=== PATIENT | male | born 1980 | race Two or more races ===

== ENCOUNTER → 2020-01-13 | Outpatient (CLI) | payer MEDICARE ==
[2020-01-13 12:09] LABS: Basophils # (auto) 0 10 ^3/uL (0-0.2); Basophils % (auto) 0.5 % (0.0-2.0); Eosinophils # (auto) 0 10 ^3/uL (0-0.8); Eosinophils % (auto) 0.5 % (0.0-7.0); Hematocrit 49.2 % (41.0-53.0); Hemoglobin 16.3 g/dL (13.5-17.5); Lymphocytes # (auto) 1.8 10 ^3/uL (0.4-5.4); Lymphocytes % (auto) 19.6 % (10.0-50.0); Mean Corpuscular Hemoglobin 30.3 pg (28.0-32.0); Mean Corpuscular Volume 91.5 fL (80.0-100.0); Monocytes # (auto) 0.7 10 ^3/uL (0-1.3); Monocytes % (auto) 7.6 % (0.0-12.0); Neutrophils # (auto) 6.7 10 ^3/uL (1.6-8.6); Neutrophils % (auto) 71.8 % (37.0-80.0); Nucleated Red Blood Cells % 0.1 %; Platelet Count (auto) 325 10^3/uL (140-450); Red Blood Cells 5.37 10^6/uL (4.5-5.90); Red Cell Distribution Width 13.8 % (11.8-14.3); White Blood Cell 9.4 10^3/uL (4.4-10.8)
[2020-01-13 12:12] LABS: Urine Bacteria NONE SEEN /hpf (None Seen); Urine Blood TRACE /uL (Negative); Urine Hyaline Cast FEW /lpf (0 - 2); Urine Specific Gravity 1.016 (1.001-1.035); Urine WBC 1 /hpf (0 - 3)
[2020-01-13 12:34] LABS: Protein, Urine 463.4 mg/dL (0.0-11.9)
[2020-01-13 12:45] LABS: Chloride 99 mmol/L (98-107); Sodium 130 mmol/L (136-145)
[2020-01-13 12:58] LABS: Alanine Aminotransferase 22 U/L (16-61); Albumin 3.1 g/dL (3.4-5.0); Alkaline Phosphatase 84 U/L (45-117); Anion Gap 4 (5-15); Aspartate Aminotransferase 19 U/L (15-37); BUN/Creatinine Ratio 15.4; Bilirubin, Total 0.6 mg/dL (0.2-1.0); Blood Urea Nitrogen 24 mg/dL (7-18); Calcium 9.4 mg/dL (8.5-10.1); Carbon Dioxide 27 mmol/L (21-32); Cholesterol 231 mg/dL (< 200); GFR African American 64 mL/min; GFR Non-African American 53 mL/min; Glucose 323 mg/dL (74-106); HDL Cholesterol 36 mg/dL (40-59); Total Protein 7.9 g/dL (6.4-8.2); Triglycerides 528 mg/dL (< 150)
== END | disposition home or self-care (01) ==
LOC: LAB 11:32
PROVIDERS: ATTEND Internal Medicine Nephrology
DX: I11.0 Hypertensive heart disease with heart failure (principal); E11.9 Type 2 diabetes mellitus without complications; I50.9 Heart failure, unspecified; I63.9 Cerebral infarction, unspecified
CPT/HCPCS: 36415; 80053; 80061; 81001; 82043; 82570; 83036; 84156; 84439; 84443; 85025

== ENCOUNTER 2020-04-30 17:53 | Inpatient (IN) | payer MEDICARE ==
[~2020-04-30] VITALS: Ht 182.9 cm; Wt 134.0 kg
[2020-04-30] MEDS ORDERED: NITROGLYCERIN 0.4 MG SL TAB SL ONE (18:45)
[2020-04-30 18:46] LABS: Basophils # (auto) 0.1 10 ^3/uL (0-0.2); Eosinophils # (auto) 0.1 10 ^3/uL (0-0.8); Eosinophils % (auto) 0.7 % (0.0-7.0); Hematocrit 39.2 % (41.0-53.0); Hemoglobin 13.2 g/dL (13.5-17.5); Lymphocytes # (auto) 2.3 10 ^3/uL (0.4-5.4); Lymphocytes % (auto) 24.4 % (10.0-50.0); Mean Corpuscular Hemoglobin 31.8 pg (28.0-32.0); Mean Corpuscular Hgb Conc. 33.7 g/dL (32.0-36.0); Mean Corpuscular Volume 94.5 fL (80.0-100.0); Monocytes # (auto) 0.8 10 ^3/uL (0-1.3); Monocytes % (auto) 8.4 % (0.0-12.0); Neutrophils # (auto) 6.3 10 ^3/uL (1.6-8.6); Neutrophils % (auto) 65.5 % (37.0-80.0); Nucleated Red Blood Cells % 0.2 %; Red Blood Cells 4.15 10^6/uL (4.5-5.90); Red Cell Distribution Width 14.4 % (11.8-14.3); White Blood Cell 9.6 10^3/uL (4.4-10.8)
[2020-04-30 19:04] LABS: Albumin 2.8 g/dL (3.4-5.0); Calcium 9.5 mg/dL (8.5-10.1); Potassium 4.3 mmol/L (3.5-5.1)
[2020-04-30 19:10] LABS: BUN/Creatinine Ratio 13.6; Bilirubin, Total 0.8 mg/dL (0.2-1.0); Total Protein 7.8 g/dL (6.4-8.2)
[2020-04-30] MEDS ORDERED: InsuLIN REG 1unit/0.01ml Soln (100units/ml) IV ONE (19:30)
[2020-04-30] MEDS ORDERED: NITROGLYCERIN 2.5 MG CAP PO ONE (19:30)
[2020-04-30] MEDS ORDERED: ENOXAPARIN SOD 150 MG/1 ML SYRINGE SC ONE (19:45)
[2020-04-30] MEDS ORDERED: NITROGLYCERIN 2% OINT 1GM PKG TD ONE (20:15)
[2020-04-30] MEDS ORDERED: FURO40TA4 PO (20:20)
[2020-04-30] MEDS ORDERED: ATOR40TA52 PO (20:20)
[2020-04-30] MEDS ORDERED: ASPI81CH74 PO (20:20)
[2020-04-30] MEDS ORDERED: LATA0.0019 EACHEYE (20:20)
[2020-04-30] MEDS ORDERED: ISOS20TA5 PO (20:20)
[2020-04-30] MEDS ORDERED: CARV25TA55 PO (20:20)
[2020-04-30] MEDS ORDERED: SPIR50TA5 PO (20:20)
[2020-04-30] MEDS ORDERED: LOSA-39 PO (20:20)
[2020-04-30] MEDS ORDERED: METF-372 PO (20:20)
[2020-04-30 20:34] LABS: Urine Bacteria NONE SEEN /hpf (None Seen); Urine Blood 1+ /uL (Negative); Urine Specific Gravity 1.014 (1.001-1.035); Urine WBC <1 /hpf (0 - 3)
[2020-04-30] MEDS ORDERED: ACETAMINOPHEN 325 MG TAB PO PRN (21:00)
[2020-04-30] MEDS ORDERED: TEMAZEPAM 15 MG CAP PO PRN (21:00)
[2020-04-30] MEDS ORDERED: NITROGLYCERIN 0.4 MG SL TAB SL PRN (21:00)
[2020-04-30] MEDS ORDERED: ONDANSETRON HCL 4 MG/2 ML VIAL IV PRN (21:00)
[2020-04-30] MEDS ORDERED: DEXTROSE (50%) 50ML SYRG IV PRN (21:00)
[2020-04-30] MEDS ORDERED: MORPHINE SULFATE INJECTION 2 MG/ML SYRG IV PRN (21:00)
[2020-04-30] MEDS: CARVEDILOL 12.5 MG TAB PO SCH (21:37)
[2020-04-30] MEDS: ATORVASTATIN 20 MG TAB PO SCH (21:37)
[2020-04-30] MEDS: ACCU-CHEK COMFORT CURVE STRIP VI SCH (21:38)
[2020-04-30] MEDS: InsuLIN REG 1unit/0.01ml Soln (100units/ml) SC SCH (21:41)
[2020-04-30] MEDS ORDERED: FUROSEMIDE 40 MG/4 ML VIAL IV ONE (21:45)
[2020-05-01 04:00] VITALS: BP 151/103
[2020-05-01 05:02] VITALS: BP 151/103
[2020-05-01] MEDS: SPIRONOLACTONE 25 MG TAB PO SCH ×2 (05:20→18:01)
[2020-05-01] MEDS: FUROSEMIDE 20 MG/2 ML VIAL IV SCH ×2 (05:20→18:01)
[2020-05-01] MEDS: ISOSORBIDE DINITRATE 10 MG TAB PO SCH ×3 (05:21→18:01)
[2020-05-01] MEDS ORDERED: FUROSEMIDE 40 MG TAB PO SCH (06:00)
[2020-05-01] MEDS: ACCU-CHEK COMFORT CURVE STRIP VI SCH ×4 (06:24→22:08)
[2020-05-01] MEDS: InsuLIN REG 1unit/0.01ml Soln (100units/ml) SC SCH ×4 (06:25→22:14)
[2020-05-01 07:10] LABS: Basophils # (auto) 0.1 10 ^3/uL (0-0.2); Basophils % (auto) 0.6 % (0.0-2.0); Eosinophils # (auto) 0.1 10 ^3/uL (0-0.8); Hematocrit 38.1 % (41.0-53.0); Hemoglobin 12.8 g/dL (13.5-17.5); Lymphocytes # (auto) 2.6 10 ^3/uL (0.4-5.4); Lymphocytes % (auto) 28.4 % (10.0-50.0); Mean Corpuscular Hemoglobin 31.6 pg (28.0-32.0); Mean Corpuscular Hgb Conc. 33.6 g/dL (32.0-36.0); Mean Corpuscular Volume 93.8 fL (80.0-100.0); Monocytes # (auto) 0.8 10 ^3/uL (0-1.3); Neutrophils # (auto) 5.6 10 ^3/uL (1.6-8.6); Red Blood Cells 4.06 10^6/uL (4.5-5.90); Red Cell Distribution Width 14.1 % (11.8-14.3); White Blood Cell 9.2 10^3/uL (4.4-10.8)
[2020-05-01 07:25] LABS: BUN/Creatinine Ratio 15.1; Calcium 8.8 mg/dL (8.5-10.1); Potassium 3.4 mmol/L (3.5-5.1)
[2020-05-01 08:47] VITALS: BP 137/69
[2020-05-01] MEDS ORDERED: ASPirin 81 mg TAB PO SCH (10:00)
[2020-05-01] MEDS ORDERED: POTASSIUM CHL 20 Meq TABLET PO ONE (10:45)
[2020-05-01] MEDS: CARVEDILOL 12.5 MG TAB PO SCH ×2 (11:05→22:15)
[2020-05-01] MEDS: LOSARTAN POTASSIUM 50 MG TAB PO SCH (11:06)
[2020-05-01] MEDS: ENOXAPARIN SOD 40 MG/0.4 ML SYRINGE SC SCH (11:06)
[2020-05-01] MEDS: PANTOPRAZOLE 40 MG TAB PO SCH (11:06)
[2020-05-01 12:50] VITALS: BP 151/75
[2020-05-01 16:30] VITALS: BP 147/101
[2020-05-01 22:00] VITALS: BP 147/94
[2020-05-01] MEDS ORDERED: INSULIN LANTUS (GLARGINE) 1 /0.01ml (100units/ml) SC SCH (22:00)
[2020-05-01] MEDS: ATORVASTATIN 20 MG TAB PO SCH (22:15)
[2020-05-01] MEDS: LATANOPROST 0.005 % OPTH(EYE) SOL 2.5ML EACHEYE SCH (22:15)
[2020-05-02 05:00] VITALS: BP 148/98
[2020-05-02] MEDS: ACCU-CHEK COMFORT CURVE STRIP VI SCH ×4 (06:07→22:06)
[2020-05-02] MEDS: InsuLIN REG 1unit/0.01ml Soln (100units/ml) SC SCH ×4 (06:11→22:10)
[2020-05-02] MEDS: ISOSORBIDE DINITRATE 10 MG TAB PO SCH ×3 (06:15→17:34)
[2020-05-02] MEDS: FUROSEMIDE 20 MG/2 ML VIAL IV SCH (06:15)
[2020-05-02] MEDS: SPIRONOLACTONE 25 MG TAB PO SCH (06:17)
[2020-05-02 07:31] LABS: Potassium 3.9 mmol/L (3.5-5.1)
[2020-05-02 07:50] LABS: Albumin 2.7 g/dL (3.4-5.0); Bilirubin, Total 0.8 mg/dL (0.2-1.0); Total Protein 6.8 g/dL (6.4-8.2)
[2020-05-02 09:05] VITALS: BP 143/100
[2020-05-02] MEDS: CARVEDILOL 12.5 MG TAB PO SCH ×2 (10:13→22:07)
[2020-05-02] MEDS: ASPirin 81 mg TAB PO SCH (10:13)
[2020-05-02] MEDS: PANTOPRAZOLE 40 MG TAB PO SCH (10:14)
[2020-05-02] MEDS: LOSARTAN POTASSIUM 50 MG TAB PO SCH (10:14)
[2020-05-02] MEDS: ENOXAPARIN SOD 40 MG/0.4 ML SYRINGE SC SCH (10:14)
[2020-05-02 12:37] VITALS: BP 134/98
[2020-05-02 12:40] LABS: Alcohol, Urine < 3.0 mg/dL (0-10); Amphetamine Screen, Urine NEGATIVE (NEGATIVE); Barbiturate Scree,Urine NEGATIVE (NEGATIVE); Benzodiazephine Screen, Urine NEGATIVE (NEGATIVE); Cannabinoid Screen, Urine NEGATIVE (NEGATIVE); Cocaine Screen, Urine NEGATIVE (NEGATIVE); Opiate Scree,Urine NEGATIVE (NEGATIVE); Phencyclidine Screen, Urine NEGATIVE (NEGATIVE)
[2020-05-02 16:36] VITALS: BP 132/89
[2020-05-02] MEDS: FUROSEMIDE 40 MG TAB PO SCH (17:34)
[2020-05-02 22:00] VITALS: BP 153/113
[2020-05-02] MEDS ORDERED: INSULIN LANTUS (GLARGINE) 1 /0.01ml (100units/ml) SC SCH (22:00)
[2020-05-02] MEDS: SACUBITRIL-VALSARTAN 24mg/26mg TAB PO SCH (22:05)
[2020-05-02] MEDS: ATORVASTATIN 20 MG TAB PO SCH (22:06)
[2020-05-02] MEDS: LATANOPROST 0.005 % OPTH(EYE) SOL 2.5ML EACHEYE SCH (22:20)
[2020-05-03 05:00] VITALS: BP 147/90
[2020-05-03 06:20] LABS: BUN/Creatinine Ratio 17.9; Calcium 8.7 mg/dL (8.5-10.1); Potassium 3.8 mmol/L (3.5-5.1)
[2020-05-03] MEDS: ACCU-CHEK COMFORT CURVE STRIP VI SCH ×3 (06:45→17:50)
[2020-05-03] MEDS: FUROSEMIDE 40 MG TAB PO SCH ×2 (06:45→17:44)
[2020-05-03] MEDS: ISOSORBIDE DINITRATE 10 MG TAB PO SCH ×3 (06:45→17:44)
[2020-05-03] MEDS: InsuLIN REG 1unit/0.01ml Soln (100units/ml) SC SCH ×3 (06:46→17:51)
[2020-05-03 09:00] VITALS: BP 128/85
[2020-05-03] MEDS: ENOXAPARIN SOD 40 MG/0.4 ML SYRINGE SC SCH (09:35)
[2020-05-03] MEDS: ASPirin 81 mg TAB PO SCH (09:35)
[2020-05-03] MEDS: SACUBITRIL-VALSARTAN 24mg/26mg TAB PO SCH (09:35)
[2020-05-03] MEDS: PANTOPRAZOLE 40 MG TAB PO SCH (09:35)
[2020-05-03] MEDS: CARVEDILOL 12.5 MG TAB PO SCH (09:45)
[2020-05-03] MEDS ORDERED: INSLANTI SC (10:19)
[2020-05-03 13:00] VITALS: BP 148/106
[2020-05-03 17:00] VITALS: BP 134/99
== END 2020-05-03 18:50 | disposition home or self-care (01) | DRG 280 ==
LOC: ER 17:53 → TELE 21:01 → TELE-CENTR 05-01 03:10
PROVIDERS: ADMIT Nurse Practitioner; ATTEND Internal Medicine
DX: I11.0 Hypertensive heart disease with heart failure (principal); I21.A1 Myocardial infarction type 2; N17.0 Acute kidney failure with tubular necrosis; Z68.41 Body mass index [BMI] 40.0-44.9, adult; I50.43 Acute on chronic combined systolic (congestive) and diastolic (congestive) heart failure; I42.0 Dilated cardiomyopathy; E11.21 Type 2 diabetes mellitus with diabetic nephropathy; E66.01 Morbid (severe) obesity due to excess calories; E11.22 Type 2 diabetes mellitus with diabetic chronic kidney disease; N18.9 Chronic kidney disease, unspecified; Z20.822 Contact with and (suspected) exposure to COVID-19; Z79.4 Long term (current) use of insulin; J44.9 Chronic obstructive pulmonary disease, unspecified; E11.65 Type 2 diabetes mellitus with hyperglycemia; E78.5 Hyperlipidemia, unspecified; F17.210 Nicotine dependence, cigarettes, uncomplicated; Z91.11 Patient's noncompliance with dietary regimen; Z91.14 Patient's other noncompliance with medication regimen
CPT/HCPCS: 36415; 71045; 80048; 80053; 80061; 80307; 81001; 82010; 82962; 83036; 83735; 83880; 84443; 84484; 85025; 87426; 93005; 93306; 96372; 96374; 96375; G0378; J1815

== ENCOUNTER 2020-08-17 03:55 | Inpatient (IN) | payer MEDICARE, OTHER ==
[~2020-08-17] VITALS: Ht 177.8 cm; Wt 129.6 kg
[~2020-08-17 03:55] MED LIST: ASPI81CH74 PO; ATOR40TA52 PO; CARV25TA55 PO; FURO40TA4 PO; ISOS20TA5 PO; LATA0.0019 EACHEYE; LOSA-39 PO; METF-372 PO; SPIR50TA5 PO
[2020-08-17] MEDS ORDERED: NITROGLYCERIN 0.4 MG SL TAB SL ONE (04:15)
[2020-08-17] MEDS ORDERED: NITROGLYCERIN 50MG/250ML 250 ML IV SCH (04:45)
[2020-08-17 05:23] LABS: Basophils # (auto) 0.1 10 ^3/uL (0-0.2); Basophils % (auto) 0.9 % (0.0-2.0); Eosinophils # (auto) 0.1 10 ^3/uL (0-0.8); Eosinophils % (auto) 0.8 % (0.0-7.0); Hematocrit 40.7 % (41.0-53.0); Hemoglobin 13.4 g/dL (13.5-17.5); Lymphocytes # (auto) 2.5 10 ^3/uL (0.4-5.4); Lymphocytes % (auto) 19.1 % (10.0-50.0); Mean Corpuscular Hemoglobin 31.2 pg (28.0-32.0); Mean Corpuscular Volume 94.5 fL (80.0-100.0); Monocytes # (auto) 1.1 10 ^3/uL (0-1.3); Monocytes % (auto) 8.6 % (0.0-12.0); Neutrophils # (auto) 9.1 10 ^3/uL (1.6-8.6); Neutrophils % (auto) 70.6 % (37.0-80.0); Red Blood Cells 4.31 10^6/uL (4.5-5.90); Red Cell Distribution Width 13.6 % (11.8-14.3); White Blood Cell 12.9 10^3/uL (4.4-10.8)
[2020-08-17 05:42] LABS: Albumin 2.8 g/dL (3.4-5.0); Calcium 8.3 mg/dL (8.5-10.1); Potassium 4.2 mmol/L (3.5-5.1)
[2020-08-17 05:49] LABS: BUN/Creatinine Ratio 12.3; Bilirubin, Total 0.5 mg/dL (0.2-1.0); Total Protein 7.4 g/dL (6.4-8.2)
[2020-08-17] MEDS ORDERED: FUROSEMIDE 40 MG/4 ML VIAL IV ONE (07:15)
[2020-08-17] MEDS ORDERED: cloNIDine HCL 0.1 MG TAB PO ONE (07:15)
[2020-08-17 07:37] LABS: Urine Bacteria NONE SEEN /hpf (None Seen); Urine Blood 1+ /uL (Negative); Urine Budding Yeast OCCASIONAL /hpf (None Seen); Urine Specific Gravity 1.025 (1.001-1.035); Urine WBC <1 /hpf (0 - 3)
[2020-08-17] MEDS ORDERED: ENOXAPARIN SOD 150 MG/1 ML SYRINGE SC ONE (08:15)
[2020-08-17] MEDS ORDERED: LABETALOL HCL 5 MG/ML 4ML SYRINGE IV ONE (08:30)
[2020-08-17] MEDS ORDERED: PROMETHAZINE HCL 25 MG/ML 1ML IV PRN (09:30)
[2020-08-17] MEDS ORDERED: DEXTROSE (50%) 50ML SYRG IV PRN ×2 (09:30→10:15)
[2020-08-17] MEDS ORDERED: ALBUTEROL SULF 2.5 MG/0.5ML(0.5%) NEB SOLN NEB PRN (09:30)
[2020-08-17] MEDS ORDERED: TEMAZEPAM 15 MG CAP PO PRN (09:30)
[2020-08-17] MEDS ORDERED: LACTULOSE 20Gm/30ML SOLN PO PRN (09:30)
[2020-08-17] MEDS ORDERED: MORPHINE SULF INJ 2 MG/ML SYRINGE 1ML IV PRN (09:30)
[2020-08-17] MEDS ORDERED: NITROGLYCERIN 0.4 MG SL TAB SL PRN (09:30)
[2020-08-17] MEDS ORDERED: InsuLIN REG 1unit/0.01ml Soln (100units/ml) SC ONE (10:15)
[2020-08-17] MEDS ORDERED: INSULIN LANTUS (GLARGINE) 1 /0.01ml (100units/ml) SC ONE (10:15)
[2020-08-17] MEDS ORDERED: InsuLIN REG 1unit/0.01ml Soln (100units/ml) IV ONE ×2 (10:15→13:00)
[2020-08-17 10:55] VITALS: BP 154/96
[2020-08-17] MEDS: InsuLIN REG 1unit/0.01ml Soln (100units/ml) SC SCH ×3 (11:30→23:01)
[2020-08-17] MEDS ORDERED: ACCU-CHEK COMFORT CURVE STRIP VI SCH (11:30)
[2020-08-17] MEDS ORDERED: InsuLIN REG 1unit/0.01ml Soln (100units/ml) SC SCH (11:30)
[2020-08-17] MEDS: ACCU-CHEK COMFORT CURVE STRIP VI SCH ×3 (12:00→22:00)
[2020-08-17] MEDS: FUROSEMIDE 40 MG/4 ML VIAL IV SCH (12:15)
[2020-08-17] MEDS: ASPirin 81 mg TAB PO SCH (12:16)
[2020-08-17] MEDS: FAMOTIDINE 20 MG TAB PO SCH ×2 (12:17→22:46)
[2020-08-17] MEDS: NITROGLYCERIN 0.2MG/HR TOPICAL PATCH TD SCH (12:17)
[2020-08-17] MEDS: CARVEDILOL 3.125 MG TAB PO SCH ×2 (12:17→22:46)
[2020-08-17] MEDS: POTASSIUM CHL 20 Meq TABLET PO SCH (12:18)
[2020-08-17] MEDS: ENALAPRIL MALEATE 2.5 MG TAB PO SCH (12:18)
[2020-08-17 13:00] VITALS: BP 152/91
[2020-08-17] MEDS: SODIUM CHLOR 0.9% PF (SALINE LOCK) 10ML VIAL/SYR IV SCH ×2 (14:00→22:45)
[2020-08-17 16:50] VITALS: BP 142/89
[2020-08-17 20:02] LABS: Alcohol, Urine < 3.0 mg/dL (0-10); Amphetamine Screen, Urine NEGATIVE (NEGATIVE); Barbiturate Scree,Urine NEGATIVE (NEGATIVE); Benzodiazephine Screen, Urine NEGATIVE (NEGATIVE); Cannabinoid Screen, Urine NEGATIVE (NEGATIVE); Cocaine Screen, Urine NEGATIVE (NEGATIVE); Opiate Scree,Urine NEGATIVE (NEGATIVE); Phencyclidine Screen, Urine NEGATIVE (NEGATIVE)
[2020-08-17 22:00] VITALS: BP 129/80
[2020-08-17] MEDS: ATORVASTATIN 20 MG TAB PO SCH (22:46)
[2020-08-17] MEDS: INSULIN LANTUS (GLARGINE) 1 /0.01ml (100units/ml) SC SCH (23:01)
[2020-08-18] MEDS: traMADol HCL 50 MG TAB PO PRN (04:06)
[2020-08-18 05:36] VITALS: BP 135/92
[2020-08-18] MEDS: SODIUM CHLOR 0.9% PF (SALINE LOCK) 10ML VIAL/SYR IV SCH ×3 (05:36→22:40)
[2020-08-18] MEDS: INSULIN LANTUS (GLARGINE) 1 /0.01ml (100units/ml) SC SCH ×2 (06:14→23:09)
[2020-08-18] MEDS: ACCU-CHEK COMFORT CURVE STRIP VI SCH ×4 (06:15→22:41)
[2020-08-18] MEDS: InsuLIN REG 1unit/0.01ml Soln (100units/ml) SC SCH ×4 (06:15→23:10)
[2020-08-18 06:47] LABS: Basophils # (auto) 0.1 10 ^3/uL (0-0.2); Basophils % (auto) 0.7 % (0.0-2.0); Eosinophils # (auto) 0.1 10 ^3/uL (0-0.8); Eosinophils % (auto) 0.8 % (0.0-7.0); Hematocrit 37.6 % (41.0-53.0); Hemoglobin 12.8 g/dL (13.5-17.5); Lymphocytes # (auto) 2.8 10 ^3/uL (0.4-5.4); Lymphocytes % (auto) 22.8 % (10.0-50.0); Mean Corpuscular Hemoglobin 31.6 pg (28.0-32.0); Mean Corpuscular Hgb Conc. 33.9 g/dL (32.0-36.0); Mean Corpuscular Volume 93.3 fL (80.0-100.0); Monocytes % (auto) 7.9 % (0.0-12.0); Neutrophils # (auto) 8.2 10 ^3/uL (1.6-8.6); Neutrophils % (auto) 67.8 % (37.0-80.0); Red Blood Cells 4.03 10^6/uL (4.5-5.90); Red Cell Distribution Width 13.5 % (11.8-14.3); White Blood Cell 12.1 10^3/uL (4.4-10.8)
[2020-08-18 07:17] LABS: Albumin 2.4 g/dL (3.4-5.0); Calcium 8.3 mg/dL (8.5-10.1); Potassium 4.1 mmol/L (3.5-5.1)
[2020-08-18 07:23] LABS: BUN/Creatinine Ratio 15.5; Bilirubin, Total 0.6 mg/dL (0.2-1.0); Total Protein 6.6 g/dL (6.4-8.2)
[2020-08-18 09:00] VITALS: BP 126/84
[2020-08-18] MEDS: ENALAPRIL MALEATE 2.5 MG TAB PO SCH (09:48)
[2020-08-18] MEDS: FAMOTIDINE 20 MG TAB PO SCH ×2 (09:48→22:41)
[2020-08-18] MEDS: ASPirin 81 mg TAB PO SCH (09:48)
[2020-08-18] MEDS: POTASSIUM CHL 20 Meq TABLET PO SCH (09:49)
[2020-08-18] MEDS: CARVEDILOL 3.125 MG TAB PO SCH ×2 (09:53→22:41)
[2020-08-18] MEDS: FUROSEMIDE 40 MG/4 ML VIAL IV SCH (09:54)
[2020-08-18] MEDS: ENOXAPARIN SOD 40 MG/0.4 ML SYRINGE SC SCH (09:54)
[2020-08-18] MEDS: NITROGLYCERIN 0.2MG/HR TOPICAL PATCH TD SCH (09:55)
[2020-08-18] MEDS: ACETAMINOPHEN 500 MG TAB PO PRN ×2 (11:25→17:33)
[2020-08-18] MEDS: Glucerna Carbsteady SHAKE Vanilla 8oz PO SCH ×2 (12:55→18:00)
[2020-08-18 13:00] VITALS: BP 129/81
[2020-08-18] MEDS: ISOSORBIDE DINITRATE 10 MG TAB PO SCH ×2 (13:02→17:37)
[2020-08-18 17:00] VITALS: BP 130/88
[2020-08-18] MEDS: SPIRONOLACTONE 25 MG TAB PO SCH (17:37)
[2020-08-18 22:04] VITALS: BP 137/92
[2020-08-18] MEDS: LATANOPROST 0.005 % OPTH(EYE) SOL 2.5ML EACHEYE SCH (22:40)
[2020-08-18] MEDS: ATORVASTATIN 20 MG TAB PO SCH (22:41)
[2020-08-19 05:21] VITALS: BP 116/78
[2020-08-19] MEDS: SPIRONOLACTONE 25 MG TAB PO SCH ×2 (06:13→17:40)
[2020-08-19] MEDS: SODIUM CHLOR 0.9% PF (SALINE LOCK) 10ML VIAL/SYR IV SCH ×3 (06:13→22:27)
[2020-08-19] MEDS: ACCU-CHEK COMFORT CURVE STRIP VI SCH ×4 (06:13→21:20)
[2020-08-19] MEDS: ISOSORBIDE DINITRATE 10 MG TAB PO SCH ×3 (06:14→17:41)
[2020-08-19] MEDS: InsuLIN REG 1unit/0.01ml Soln (100units/ml) SC SCH ×4 (06:43→21:19)
[2020-08-19] MEDS: INSULIN LANTUS (GLARGINE) 1 /0.01ml (100units/ml) SC SCH ×2 (06:43→22:26)
[2020-08-19 07:20] LABS: Basophils # (auto) 0.1 10 ^3/uL (0-0.2); Basophils % (auto) 0.8 % (0.0-2.0); Eosinophils # (auto) 0.2 10 ^3/uL (0-0.8); Eosinophils % (auto) 1.5 % (0.0-7.0); Hematocrit 35.3 % (41.0-53.0); Hemoglobin 12.2 g/dL (13.5-17.5); Lymphocytes # (auto) 2.7 10 ^3/uL (0.4-5.4); Lymphocytes % (auto) 27.5 % (10.0-50.0); Mean Corpuscular Hemoglobin 32.1 pg (28.0-32.0); Mean Corpuscular Hgb Conc. 34.5 g/dL (32.0-36.0); Mean Corpuscular Volume 92.9 fL (80.0-100.0); Monocytes # (auto) 0.9 10 ^3/uL (0-1.3); Monocytes % (auto) 8.9 % (0.0-12.0); Neutrophils # (auto) 6.1 10 ^3/uL (1.6-8.6); Neutrophils % (auto) 61.3 % (37.0-80.0); Nucleated Red Blood Cells % 0.1 %; Red Cell Distribution Width 13.4 % (11.8-14.3); White Blood Cell 9.9 10^3/uL (4.4-10.8)
[2020-08-19 07:41] LABS: Albumin 2.2 g/dL (3.4-5.0); Calcium 8.3 mg/dL (8.5-10.1)
[2020-08-19 07:45] LABS: BUN/Creatinine Ratio 17.8; Bilirubin, Total 0.6 mg/dL (0.2-1.0); Total Protein 6.3 g/dL (6.4-8.2)
[2020-08-19] MEDS: Glucerna Carbsteady SHAKE Vanilla 8oz PO SCH ×3 (08:10→17:40)
[2020-08-19] MEDS: traMADol HCL 50 MG TAB PO PRN ×2 (08:24→23:31)
[2020-08-19 09:00] VITALS: BP 142/97
[2020-08-19] MEDS: ASPirin 81 mg TAB PO SCH (09:47)
[2020-08-19] MEDS: FAMOTIDINE 20 MG TAB PO SCH ×2 (09:47→21:20)
[2020-08-19] MEDS: ENOXAPARIN SOD 40 MG/0.4 ML SYRINGE SC SCH (09:47)
[2020-08-19] MEDS: ENALAPRIL MALEATE 2.5 MG TAB PO SCH (09:48)
[2020-08-19] MEDS: FUROSEMIDE 40 MG/4 ML VIAL IV SCH (09:48)
[2020-08-19] MEDS: POTASSIUM CHL 20 Meq TABLET PO SCH (09:49)
[2020-08-19] MEDS: CARVEDILOL 3.125 MG TAB PO SCH ×2 (09:49→22:27)
[2020-08-19] MEDS: NITROGLYCERIN 0.2MG/HR TOPICAL PATCH TD SCH (09:50)
[2020-08-19] MEDS ORDERED: CARVEDILOL 3.125 MG TAB PO ONE (12:00)
[2020-08-19 13:00] VITALS: BP 140/92
[2020-08-19 16:53] VITALS: BP 127/86
[2020-08-19] MEDS: ATORVASTATIN 20 MG TAB PO SCH (21:20)
[2020-08-19 22:00] VITALS: BP 160/99
[2020-08-19] MEDS: LATANOPROST 0.005 % OPTH(EYE) SOL 2.5ML EACHEYE SCH (22:27)
[2020-08-20 03:58] VITALS: BP 142/86
[2020-08-20 05:00] VITALS: BP 114/70
[2020-08-20] MEDS: InsuLIN REG 1unit/0.01ml Soln (100units/ml) SC SCH ×2 (05:48→11:19)
[2020-08-20] MEDS: ACCU-CHEK COMFORT CURVE STRIP VI SCH ×2 (05:48→11:18)
[2020-08-20] MEDS: ISOSORBIDE DINITRATE 10 MG TAB PO SCH ×2 (05:56→11:49)
[2020-08-20] MEDS: SPIRONOLACTONE 25 MG TAB PO SCH (05:56)
[2020-08-20] MEDS: SODIUM CHLOR 0.9% PF (SALINE LOCK) 10ML VIAL/SYR IV SCH ×2 (06:10→13:24)
[2020-08-20] MEDS: INSULIN LANTUS (GLARGINE) 1 /0.01ml (100units/ml) SC SCH (06:31)
[2020-08-20 06:39] LABS: Basophils # (auto) 0.1 10 ^3/uL (0-0.2); Basophils % (auto) 0.9 % (0.0-2.0); Eosinophils # (auto) 0.1 10 ^3/uL (0-0.8); Eosinophils % (auto) 0.5 % (0.0-7.0); Hematocrit 36.6 % (41.0-53.0); Hemoglobin 12.2 g/dL (13.5-17.5); Mean Corpuscular Hemoglobin 31.3 pg (28.0-32.0); Mean Corpuscular Hgb Conc. 33.4 g/dL (32.0-36.0); Mean Corpuscular Volume 93.7 fL (80.0-100.0); Monocytes # (auto) 1.1 10 ^3/uL (0-1.3); Monocytes % (auto) 8.6 % (0.0-12.0); Neutrophils # (auto) 9.4 10 ^3/uL (1.6-8.6); Nucleated Red Blood Cells % 0.1 %; Red Blood Cells 3.91 10^6/uL (4.5-5.90); Red Cell Distribution Width 13.6 % (11.8-14.3); White Blood Cell 12.7 10^3/uL (4.4-10.8)
[2020-08-20 06:50] LABS: BUN/Creatinine Ratio 16.5; Calcium 8.5 mg/dL (8.5-10.1); Potassium 4.3 mmol/L (3.5-5.1)
[2020-08-20 09:00] VITALS: BP 122/86
[2020-08-20] MEDS: Glucerna Carbsteady SHAKE Vanilla 8oz PO SCH ×2 (09:34→11:48)
[2020-08-20] MEDS: CARVEDILOL 3.125 MG TAB PO SCH (09:35)
[2020-08-20] MEDS: ASPirin 81 mg TAB PO SCH (09:35)
[2020-08-20] MEDS: POTASSIUM CHL 20 Meq TABLET PO SCH (09:35)
[2020-08-20] MEDS: FUROSEMIDE 40 MG/4 ML VIAL IV SCH (09:35)
[2020-08-20] MEDS: ENOXAPARIN SOD 40 MG/0.4 ML SYRINGE SC SCH (09:36)
[2020-08-20] MEDS: FAMOTIDINE 20 MG TAB PO SCH (09:36)
[2020-08-20] MEDS: ENALAPRIL MALEATE 2.5 MG TAB PO SCH (09:36)
[2020-08-20] MEDS: NITROGLYCERIN 0.2MG/HR TOPICAL PATCH TD SCH (09:37)
[2020-08-20 13:00] VITALS: BP 139/83
== END 2020-08-20 15:17 | disposition home or self-care (01) | DRG 291 ==
LOC: ER 03:55 → TELE 09:18 → TELE-WESTW 10:28 → WEST WING 08-18 03:38 → TELE-WESTW 08-18 04:03
PROVIDERS: ADMIT Internal Medicine; ATTEND Family Medicine
DX: I13.0 Hypertensive heart and chronic kidney disease with heart failure and stage 1 through stage 4 chronic kidney disease, or unspecified chronic kidney disease (principal); I50.43 Acute on chronic combined systolic (congestive) and diastolic (congestive) heart failure; N17.0 Acute kidney failure with tubular necrosis; I16.1 Hypertensive emergency; E44.0 Moderate protein-calorie malnutrition; E87.1 Hypo-osmolality and hyponatremia; J44.1 Chronic obstructive pulmonary disease with (acute) exacerbation; J98.11 Atelectasis; Z68.41 Body mass index [BMI] 40.0-44.9, adult; Z20.822 Contact with and (suspected) exposure to COVID-19; E11.21 Type 2 diabetes mellitus with diabetic nephropathy; R31.9 Hematuria, unspecified; E11.65 Type 2 diabetes mellitus with hyperglycemia; E66.01 Morbid (severe) obesity due to excess calories; E88.09 Other disorders of plasma-protein metabolism, not elsewhere classified; J44.9 Chronic obstructive pulmonary disease, unspecified; N18.30 Chronic kidney disease, stage 3 unspecified; E11.22 Type 2 diabetes mellitus with diabetic chronic kidney disease; F17.210 Nicotine dependence, cigarettes, uncomplicated; I25.2 Old myocardial infarction; Z82.49 Family history of ischemic heart disease and other diseases of the circulatory system; Z83.3 Family history of diabetes mellitus; Z91.14 Patient's other noncompliance with medication regimen; Z79.899 Other long term (current) drug therapy
CPT/HCPCS: 36415; 71045; 80048; 80053; 80061; 80307; 81001; 82550; 82962; 83036; 83880; 84443; 84484; 85025; 85049; 87426; 93005; 96372; 96374; 99291; G0378; J1815; J3490

== ENCOUNTER 2021-06-18 17:32 | Emergency (ER) | payer SELFPAY ==
[~2021-06-18] VITALS: Ht 177.8 cm; Wt 134.7 kg
[2021-06-18 21:40] VITALS: BP 176/107
== END 2021-06-18 21:45 | disposition home or self-care (01) ==
LOC: ER 17:32
DX: S09.90XA Unspecified injury of head, initial encounter (principal); I11.0 Hypertensive heart disease with heart failure; I50.9 Heart failure, unspecified; E11.9 Type 2 diabetes mellitus without complications; F17.210 Nicotine dependence, cigarettes, uncomplicated; W22.8XXA Striking against or struck by other objects, initial encounter; Y93.89 Activity, other specified; Y92.89 Other specified places as the place of occurrence of the external cause; Y99.8 Other external cause status

== ENCOUNTER 2021-06-22 11:00 | Emergency (ER) | payer OTHER, MEDICAID ==
[~2021-06-22] VITALS: Ht 177.8 cm; Wt 134.7 kg
[2021-06-22 11:01] VITALS: BP 150/98
== END 2021-06-22 11:10 | disposition left against medical advice (07) ==
LOC: ER 11:00
DX: R51.9 Headache, unspecified (principal); M54.2 Cervicalgia; Z53.21 Procedure and treatment not carried out due to patient leaving prior to being seen by health care provider

== ENCOUNTER 2023-06-11 23:59 | Inpatient (IN) | payer MEDICAID, OTHER ==
[~2023-06-11] VITALS: Ht 177.8 cm; Wt 135.0 kg
[~2023-06-11 23:59] MED LIST changes: -LATA0.0019 EACHEYE; +LATA0.008 EACHEYE; -LOSA-39 PO; +LOSA-535 PO
[2023-06-12 02:14] LABS: Basophils # (auto) 0.1 10 ^3/uL (0-0.2); Eosinophils # (auto) 0 10 ^3/uL (0-0.8); Eosinophils % (auto) 0.6 % (0.0-7.0); Hematocrit 42.1 % (41.0-53.0); Hemoglobin 13.2 g/dL (13.5-17.5); Lymphocytes # (auto) 2.2 10 ^3/uL (0.4-5.4); Lymphocytes % (auto) 29.1 % (10.0-50.0); Mean Corpuscular Hemoglobin 28.7 pg (28.0-32.0); Mean Corpuscular Hgb Conc. 31.5 g/dL (32.0-36.0); Mean Corpuscular Volume 91.1 fL (80.0-100.0); Monocytes # (auto) 0.8 10 ^3/uL (0-1.3); Monocytes % (auto) 10.5 % (0.0-12.0); Neutrophils # (auto) 4.4 10 ^3/uL (1.6-8.6); Neutrophils % (auto) 58.8 % (37.0-80.0); Red Blood Cells 4.62 10^6/uL (4.5-5.90); Red Cell Distribution Width 16.1 % (11.8-14.3); White Blood Cell 7.5 10^3/uL (4.4-10.8)
[2023-06-12 02:15] LABS: Alanine Aminotransferase 37 U/L (7-40); Albumin 3.7 g/dL (3.2-4.8); Alkaline Phosphatase 171 U/L (46-116); Anion Gap 5 (5-15); Aspartate Aminotransferase 25 U/L (13-40); BUN/Creatinine Ratio 11.8 (10.0-20.0); Blood Urea Nitrogen 29 mg/dL (9-23); Calcium 10.2 mg/dL (8.7-10.4); Carbon Dioxide 24 mmol/L (20-30); Chloride 100 mmol/L (98-107); Potassium 4.8 mmol/L (3.5-5.1); Sodium 129 mmol/L (136-145)
[2023-06-12 02:16] LABS: Bilirubin, Total 0.6 mg/dL (0.2-1.0)
[2023-06-12 02:45] LABS: Glucose 525 mg/dL (74-106)
[2023-06-12 03:30] VITALS: PULSE 75; RESP 14; O2SAT 96
[2023-06-12] MEDS: FUROSEMIDE 40 MG/4 ML VIAL IV ONE (04:14)
[2023-06-12] MEDS: InsuLIN REG 1unit/0.01ml Soln (100units/ml) SC ONE (04:14)
[2023-06-12] MEDS: SODIUM CHLORIDE 0.9% 1,000 ML IV SCH (05:45)
[2023-06-12] MEDS ORDERED: DOCUSATE SOD 100 MG CAP PO PRN (05:45)
[2023-06-12] MEDS ORDERED: ACETAMINOPHEN 325 MG TAB PO PRN (05:45)
[2023-06-12] MEDS ORDERED: DEXTROSE (50%) 50ML SYRG IV PRN (05:45)
[2023-06-12] MEDS ORDERED: ONDANSETRON HCL 4 MG/2 ML VIAL IV PRN (05:45)
[2023-06-12] MEDS: ASPirin 325 MG TAB PO ONE (05:47)
[2023-06-12 06:04] LABS: Urine Bacteria None Seen /hpf (None Seen)
[2023-06-12] MEDS ORDERED: MORPHINE SULFATE INJ 2 MG/ml SYRG IV PRN (06:15)
[2023-06-12] MEDS ORDERED: NITROGLYCERIN 0.4 MG SL TAB SL PRN (06:15)
[2023-06-12 06:17] LABS: Basophils # (auto) 0.1 10 ^3/uL (0-0.2); Basophils % (auto) 1.2 % (0.0-2.0); Eosinophils # (auto) 0.1 10 ^3/uL (0-0.8); Hematocrit 42.4 % (41.0-53.0); Hemoglobin 13.7 g/dL (13.5-17.5); Lymphocytes % (auto) 24.9 % (10.0-50.0); Mean Corpuscular Hemoglobin 29.1 pg (28.0-32.0); Mean Corpuscular Hgb Conc. 32.3 g/dL (32.0-36.0); Monocytes # (auto) 0.8 10 ^3/uL (0-1.3); Monocytes % (auto) 10.1 % (0.0-12.0); Neutrophils # (auto) 4.9 10 ^3/uL (1.6-8.6); Neutrophils % (auto) 62.8 % (37.0-80.0); Red Blood Cells 4.72 10^6/uL (4.5-5.90); Red Cell Distribution Width 15.7 % (11.8-14.3); White Blood Cell 7.8 10^3/uL (4.4-10.8)
[2023-06-12 06:33] LABS: Alanine Aminotransferase 36 U/L (7-40); Albumin 3.7 g/dL (3.2-4.8); Alkaline Phosphatase 175 U/L (46-116); Anion Gap 6 (5-15); Aspartate Aminotransferase 24 U/L (13-40); BUN/Creatinine Ratio 13.5 (10.0-20.0); Blood Urea Nitrogen 32 mg/dL (9-23); Calcium 10.3 mg/dL (8.7-10.4); Carbon Dioxide 25 mmol/L (20-30); Chloride 101 mmol/L (98-107); Potassium 4.7 mmol/L (3.5-5.1); Sodium 132 mmol/L (136-145)
[2023-06-12 06:34] LABS: Bilirubin, Total 0.6 mg/dL (0.2-1.0)
[2023-06-12 06:37] LABS: Glucose 425 mg/dL (74-106)
[2023-06-12 06:47] LABS: Urine Blood 1+ /uL (Negative); Urine Clarity Clear (Clear); Urine Color Light-Yellow (Yellow); Urine Hyaline Cast MANY /lpf (0 - 2); Urine Protein, UAD 2+ (Negative); Urine Urobilinogen Normal (Negative); Urine WBC <1 /hpf (0 - 3); Urine pH 5.5 (5.0-9.0)
[2023-06-12 08:00] VITALS: PULSE 78; RESP 18; O2SAT 93
[2023-06-12] MEDS: ASPirin 81 mg TAB PO SCH (08:14)
[2023-06-12] MEDS: CARVEDILOL 3.125 MG TAB PO SCH (08:14)
[2023-06-12] MEDS: ACCU-CHEK COMFORT CURVE STRIP VI SCH (08:15)
[2023-06-12] MEDS: FUROSEMIDE 40 MG/4 ML VIAL IV SCH ×2 (08:15→16:28)
[2023-06-12] MEDS: InsuLIN REG 1unit/0.01ml Soln (100units/ml) SC SCH (08:28)
[2023-06-12] MEDS: HYDROcodone-ACET 5/325MG TAB PO PRN (09:49)
[2023-06-12] MEDS ORDERED: hydrALAZINE HCL 20 MG/ML VL IV PRN (10:00)
[2023-06-12] MEDS: CARVEDILOL 12.5 MG TAB PO SCH (10:00)
[2023-06-12] MEDS ORDERED: INSULIN LANTUS (GLARGINE) 1 /0.01ml (100units/ml) SC SCH (10:00)
[2023-06-12 10:40] LABS: Amphetamine Screen, Urine Neg (NEGATIVE); Barbiturate Scree,Urine Neg (NEGATIVE); Benzodiazephine Screen, Urine Neg (NEGATIVE); Cannabinoid Screen, Urine Neg (NEGATIVE); Cocaine Screen, Urine Neg (NEGATIVE); Opiate Scree,Urine Neg (NEGATIVE); Phencyclidine Screen, Urine Neg (NEGATIVE)
[2023-06-12 11:05] LABS: Protein, Urine 248.6 mg/dL (0.0-11.9)
[2023-06-12] MEDS: CARVEDILOL 12.5 MG TAB PO ONE (11:06)
[2023-06-12 11:08] LABS: Creatinine, Urine 39.16 mg/dL (30.0-125.0); Urine Protein/Creatinine Ratio 6.35
[2023-06-12 11:14] LABS: Magnesium 2.2 mg/dL (1.6-2.6)
[2023-06-12 12:15] VITALS: BP 147/90; PULSE 98; RESP 18; TEMP 98.8; O2SAT 95
[2023-06-12] MEDS: SPIRONOLACTONE 25 MG TAB PO SCH (15:22)
[2023-06-12 16:44] VITALS: PULSE 70; RESP 16; O2SAT 96
[2023-06-12] MEDS: EMPAGLIFLOZIN 10 MG TAB PO SCH (17:10)
[2023-06-12] MEDS ORDERED: FUROSEMIDE 40 MG/4 ML VIAL IV SCH (18:00)
[2023-06-12 20:00] VITALS: PULSE 75; PULSE 79; PULSE 80; RESP 18; O2SAT 96
[2023-06-12] MEDS: ATORVASTATIN 20 MG TAB PO SCH (20:24)
[2023-06-12] MEDS: INSULIN LANTUS (GLARGINE) 1 /0.01ml (100units/ml) SC SCH (20:30)
[2023-06-12 20:41] VITALS: BP 155/100; PULSE 80; RESP 18; TEMP 97.8; O2SAT 96
[2023-06-12] MEDS ORDERED: TRAZ-181 PO (20:44)
[2023-06-13 05:09] VITALS: BP 142/93; PULSE 68; RESP 18; TEMP 97.5; O2SAT 99
[2023-06-13 05:40] LABS: Basophils # (auto) 0 10 ^3/uL (0-0.2); Basophils % (auto) 0.5 % (0.0-2.0); Eosinophils # (auto) 0.1 10 ^3/uL (0-0.8); Eosinophils % (auto) 1.5 % (0.0-7.0); Hematocrit 42.3 % (41.0-53.0); Hemoglobin 13.7 g/dL (13.5-17.5); Lymphocytes # (auto) 1.6 10 ^3/uL (0.4-5.4); Mean Corpuscular Hemoglobin 29.4 pg (28.0-32.0); Mean Corpuscular Hgb Conc. 32.5 g/dL (32.0-36.0); Mean Corpuscular Volume 90.6 fL (80.0-100.0); Monocytes # (auto) 0.8 10 ^3/uL (0-1.3); Monocytes % (auto) 9.1 % (0.0-12.0); Neutrophils # (auto) 6.4 10 ^3/uL (1.6-8.6); Neutrophils % (auto) 70.9 % (37.0-80.0); Nucleated Red Blood Cells % 0.1 %; Red Blood Cells 4.67 10^6/uL (4.5-5.90); Red Cell Distribution Width 15.8 % (11.8-14.3); White Blood Cell 8.9 10^3/uL (4.4-10.8)
[2023-06-13 05:55] LABS: Alanine Aminotransferase 26 U/L (7-40); Albumin 3.4 g/dL (3.2-4.8); Alkaline Phosphatase 151 U/L (46-116); Anion Gap 6 (5-15); Aspartate Aminotransferase 18 U/L (13-40); BUN/Creatinine Ratio 15.4 (10.0-20.0); Bilirubin, Total 0.6 mg/dL (0.2-1.0); Blood Urea Nitrogen 33 mg/dL (9-23); Calcium 10.4 mg/dL (8.5-10.1); Carbon Dioxide 27 mmol/L (20-30); Chloride 104 mmol/L (98-107); Potassium 4.4 mmol/L (3.5-5.1); Sodium 137 mmol/L (136-145); Total Protein 6.4 g/dL (5.7-8.2)
[2023-06-13 05:56] LABS: Glucose 168 mg/dL (74-106)
[2023-06-13 08:00] VITALS: BP 118/73; PULSE 57; PULSE 67; RESP 18; RESP 21; TEMP 97.8; O2SAT 95; O2SAT 99
[2023-06-13 12:00] VITALS: BP 140/84; PULSE 62; RESP 18; TEMP 97.6; O2SAT 99
[2023-06-13] MEDS: LISINOPRIL 5 MG TAB PO SCH (13:29)
[2023-06-13 16:00] VITALS: BP 141/95; PULSE 74; RESP 18; TEMP 97.4; O2SAT 91
== END 2023-06-13 18:50 | disposition home or self-care (01) | DRG 194 ==
LOC: ER 23:59 → TELE 06-12 06:14 → TELE-E-ADS 06-12 12:01 → TELE-WESTW 06-12 12:05
PROVIDERS: ADMIT Nurse Practitioner Family; ATTEND Internal Medicine Pulmonary Disease
DX: I13.0 Hypertensive heart and chronic kidney disease with heart failure and stage 1 through stage 4 chronic kidney disease, or unspecified chronic kidney disease (principal); E11.00 Type 2 diabetes mellitus with hyperosmolarity without nonketotic hyperglycemic-hyperosmolar coma (NKHHC); I21.A1 Myocardial infarction type 2; N17.9 Acute kidney failure, unspecified; E87.1 Hypo-osmolality and hyponatremia; I42.8 Other cardiomyopathies; I50.23 Acute on chronic systolic (congestive) heart failure; E11.22 Type 2 diabetes mellitus with diabetic chronic kidney disease; F17.210 Nicotine dependence, cigarettes, uncomplicated; E11.65 Type 2 diabetes mellitus with hyperglycemia; I44.0 Atrioventricular block, first degree; E78.5 Hyperlipidemia, unspecified; E66.01 Morbid (severe) obesity due to excess calories; N18.30 Chronic kidney disease, stage 3 unspecified; Z79.84 Long term (current) use of oral hypoglycemic drugs; Z91.199 Patient's noncompliance with other medical treatment and regimen due to unspecified reason; Z82.49 Family history of ischemic heart disease and other diseases of the circulatory system; Z68.41 Body mass index [BMI] 40.0-44.9, adult; Z79.4 Long term (current) use of insulin
CPT/HCPCS: 36415; 71045; 80053; 80061; 80307; 81001; 82306; 82570; 82962; 83036; 83605; 83735; 83880; 84156; 84443; 84484; 85025; 85379; 87040; 87081; 93005; 93306; 93970; 96372; 96374; G0378; J1815